=== PATIENT | female | born 1990 | race Caucasian/White ===

== ENCOUNTER 2017-08-27 13:13 | Emergency (ER) | payer MEDICAID ==
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
--- NOTE | 2017-08-28 08:48 | Diagnostic Imaging Report ---
Head CT without intravenous contrast Indication: pain Comparison: CT maxillofacial bones the same day Technique: Axial images were obtained from the vertex to the skull base without IV contrast. Coronal reconstructions were made. Total DLP 593, CTD I 33 FINDINGS: Images of the brain obtained without contrast demonstrate no acute hemorrhage. No mass lesions identified. The ventricles and basal cisterns are patent. The zepeda-white matter differentiation is preserved. There is no mass effect or midline shift. No skull fractures identified. No soft tissue swelling. The paranasal sinuses are clear. IMPRESSION: No acute intracranial abnormality. Please refer to CT maxillofacial bones the same day for further findings of nasal fractures.
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
== END 2017-08-27 19:40 | disposition home or self-care (01) ==
LOC: ER 13:13
DX: S02.2XXA Fracture of nasal bones, initial encounter for closed fracture (principal); S09.90XA Unspecified injury of head, initial encounter; Y08.89XA Assault by other specified means, initial encounter; Y93.89 Activity, other specified; Y92.89 Other specified places as the place of occurrence of the external cause; Y99.8 Other external cause status
CPT/HCPCS: 99284; 96372 ×2; 70450; 70486; 72125; 81025; 90715; J1885; J0696; Z7502